=== PATIENT | female | born 1930 | race Caucasian/White ===

== ENCOUNTER 2016-07-03 14:12 | Emergency (ER) | payer MEDICARE ==
[~2016-07-03] VITALS: Ht 152.4 cm; Wt 54.5 kg
[~2016-07-03 14:12] MED LIST: ACIP20TA19 PO; NEBI5 PO
[2016-07-03 14:18] VITALS: BP 148/73; PULSE 70; RESP 16; TEMP 98.3; O2SAT 98
[2016-07-03] MEDS ORDERED: CLON0.1T PO (14:32)
[2016-07-03] MEDS ORDERED: RABE1TAB PO (14:32)
[2016-07-03] MEDS ORDERED: LOSA50TA PO (14:32)
--- NOTE | 2016-07-03 14:32 | PD ---
HPI Chief Complaint: Bite or Sting Time Seen by Provider: 14:28 Travel History International Travel<30 days: No Contact w/Intl Traveler<30days: No Traveled to known affect area: No History of Present Illness HPI 86-year-old female presents the emergency department status post dog bite/dog scratches to the left dorsal wrist and forearm. Patient states it was her own dog was getting excited due to some new in the home. Animal is up-to- date on his shots. Patient is unsure of her last tetanus shot. Pain is described as 3/10. Patient has full range of motion of the left arm and wrist and fingers. Patient has normal sensation in the left distal hand. Patient is allergic to ciprofloxacin and penicillin. 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) Cardiovascular Problems: Yes (HTN) High Cholesterol: No Chemotherapy: No Chest Pain: No Congestive Heart Failure: No COPD: No Cerebrovascular Accident: No Diabetes: No Diverticulitis: Yes Endocrine: No Gastrointestinal Disorders: Yes GERD: Yes Genitourinary: Yes (BLADDER SLING) Hiatal Hernia: No Hypertension: Yes Immune Disorder: No Kidney Stones: No Musculoskeletal: No Neurologic: Yes Psychiatric: No Reproductive: No Respiratory: No Migraines: No Radiation Therapy: No Renal Failure: No Seizures: No Sickle Cell Disease: No Sleep Apnea: No Thyroid Disease: No Ulcer: No ?: Not Menopausal: Yes Past Surgical History Abdominal Surgery: Yes (, CHOLECYSTECTOMY, HYSTERECTOMY) AICD: No Appendectomy: Yes Arteriovenous Shunt: No Cardiac Surgery: No Cholecystectomy: Yes Ear Surgery: No Endocrine Surgery: No Eye Surgery: Yes (CATARACTS) Genitourinary Surgery: Yes (BLADDER) Gynecologic Surgery: Yes (HYSTERECTOMY) Hysterectomy: Yes Insulin Pump: No Joint Replacement: No Oral Surgery: No Pacemaker: No Thoracic Surgery: No Other Surgery: Yes Social History Alcohol Use: No Tobacco Use: No Substance Use: No Allergies-Medications (Allergen,Severity, Reaction): Coded Allergies: Ciprofloxacin (Unverified Allergy, Mild, NAUSEA/VOMITING, 07/03/16) Penicillin (Unverified Allergy, Mild, TONGUE SWELLS, 07/03/16) Reported Meds & Prescriptions Reported Meds & Active Scripts Active Reported Clonidine (Clonidine HCl) 0.1 Mg Tab 0.5 Mg PO Q6HR PRN Losartan (Losartan Potassium) 50 Mg Tab 50 Mg PO DAILY Rabeprazole (Rabeprazole Sodium) 20 Mg Tab 20 Mg PO DAILY Review of Systems General / Constitutional: No: Fever Eyes: No: Visual changes HENT: No: Headaches Cardiovascular: No: Chest Pain or Discomfort Respiratory: No: Shortness of Breath Gastrointestinal: No: Abdominal Pain Genitourinary: No: Dysuria Musculoskeletal: No: Pain Skin: No Rash Neurologic: No: Weakness Psychiatric: No: Depression Endocrine: No: Polydipsia Hematologic/Lymphatic: No: Easy Bruising Physical Exam Narrative GENERAL: Patient appears in mild distress. SKIN: Warm and dry. Normal color. Normal turgor. Patient has a full- thickness laceration to the left dorsal wrist measuring approximately 4 cm. There are 2 small abrasions as well. Patient has 2 small abrasions to the proximal dorsal forearm which do not warrant sutures. HEAD: Atraumatic. Normocephalic. EYES: Pupils equal and round. No scleral icterus. No injection or drainage. ENT: No nasal bleeding or discharge. Mucous membranes pink and moist. Pharynx is clear. NECK: Trachea midline. Supple nontender. CARDIOVASCULAR: Regular rate and rhythm. RESPIRATORY: No accessory muscle use. Clear to auscultation. Breath sounds equal bilaterally. MUSCULOSKELETAL: Extremities without clubbing, cyanosis, or edema. No obvious deformities. Patient has full range of motion and strength in the left arm without significant pain. NEUROLOGICAL: Awake and alert. No obvious cranial nerve deficits. Motor grossly within normal limits. Five out of 5 muscle strength in the arms and legs. Normal speech. PSYCHIATRIC: Appropriate mood and affect; insight and judgment normal. Data Data Last Documented VS Vital Signs Date Time Temp Pulse Resp B/P Pulse Ox O2 Delivery O2 Flow Rate FiO2 07/03/16 14:18 98.3 70 16 148/73 98 Orders Tetanus/Diphtheria Tox Adult (Tetanus/Di (07/03/16 14:45) Lidocai-Epi 1%-1:100,000 Inj (Xylocaine- (07/03/16 14:45) MDM Medical Decision Making Medical Screen Exam Complete: Yes Emergency Medical Condition: Yes Differential Diagnosis Dog bite. Abrasions. Need for sutures. Narrative Course Patient is medically stable at time of exam. Radiographic imaging is not felt warranted based on my history and physical. Patient is given her tetanus booster IM. Left wrist laceration is repaired. See procedure note. Wounds are all cleansed and dressed by nursing staff. Dressing is to remain in place for the next 2 days and kept clean and dry. Patient should follow-up in 2 days for a wound check and dressing change. Sutures should remain in place for 10 days. Patient can return 10 days for suture removal or sooner if symptoms warrant. Procedures Procedure Narrative LACERATION LOCATION: Left dorsal wrist LENGTH: 4 cm NUMBER OF STITCHES/WILLIE: 5 interrupted horizontal mattress REPAIR: The area of the laceration was prepped with Betadine and sterilely draped. The laceration was infiltrated with 3 mL was 1% lidocaine with epi. The wound was copiously irrigated and explored without evidence of foreign body , tendon injury or neurovascular injury. The wound was closed using 5-0 Prolene. This was a single layer repair. A sterile dressing was applied. The patient was advised to keep the dressing clean and dry. Patient tolerated the procedure well. Diagnosis Primary Impression: Dog bite of arm Qualified Code: S41.152A - Dog bite of arm, left, initial encounter Additional Impressions: Laceration of left wrist without complication Qualified Code: S61.512A - Laceration of left wrist without complication, initial encounter Abrasion of forearm, left Qualified Code: S50.812A - Abrasion of forearm, left, initial encounter Patient Instructions: General Instructions Additional Instructions: Radiographic imaging is not felt warranted based on my history and physical. Patient is given her tetanus booster IM. Left wrist laceration is repaired. See procedure note. Wounds are all cleansed and dressed by nursing staff. Dressing is to remain in place for the next 2 days and kept clean and dry. Patient should follow-up in 2 days for a wound check and dressing change. Sutures should remain in place for 10 days. Patient can return 10 days for suture removal or sooner if symptoms warrant. Med/Other Pt SpecificInfo: Wound Care Condition: Stable Haja French Jul 03, 2016 14:32
[2016-07-03] MEDS ORDERED: LIDOCAINE 1%/EPINEPHrine 1:100,000 SOLN 20 ML VIAL INFIL ONE (14:45)
[2016-07-03] MEDS ORDERED: TETANUS/DIPHTHERIA TOXOID ADULT 0.5 ML VIAL IM ONE (14:45)
== END 2016-07-03 15:18 | disposition home or self-care (01) ==
LOC: PHEFT 14:12
DX: S61.512A Laceration without foreign body of left wrist, initial encounter (principal); I10 Essential (primary) hypertension; S50.812A Abrasion of left forearm, initial encounter; Z23 Encounter for immunization; W54.0XXA Bitten by dog, initial encounter; Y93.9 Activity, unspecified; Y92.89 Other specified places as the place of occurrence of the external cause; Y99.9 Unspecified external cause status
CPT/HCPCS: 12002; 90471; 90714

== ENCOUNTER 2016-10-26 07:16 | Emergency (ER) | payer MEDICARE ==
[~2016-10-26] VITALS: Ht 152.4 cm; Wt 53.1 kg
[~2016-10-26 07:16] MED LIST changes: -ACIP20TA19 PO; +CLON0.1T PO; +LOSA50TA PO; -NEBI5 PO; +RABE1TAB PO
[2016-10-26 07:27] VITALS: BP 151/73; PULSE 96; RESP 18; TEMP 97.9; O2SAT 97
[2016-10-26] MEDS ORDERED: AMLO10TA2 PO (07:27)
--- NOTE | 2016-10-26 07:50 | PD ---
HPI Chief Complaint: Skin Problem Time Seen by Provider: 07:37 Travel History International Travel<30 days: No Contact w/Intl Traveler<30days: No Traveled to known affect area: No History of Present Illness HPI 86yo F with PMH of HTN presents to the ED with c/o rash in midforehead for 4 days. States it was painful but not really now. Pt states it had pustules but they bursts. Pt also noted redness and swelling around right eye today. States there was a bug bite around right eyebrow a few days ago. Denies any eye trauma, fever, changes in vision, pain with eye movement, nausea, vomiting, abdominal pain, focal weakness or numbness. The area around the eye was painful and itchy before but not anymore. 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) Cardiovascular Problems: Yes (HTN) High Cholesterol: No Chemotherapy: No Chest Pain: No Congestive Heart Failure: No COPD: No Cerebrovascular Accident: No Diabetes: No Diverticulitis: Yes Endocrine: No Gastrointestinal Disorders: Yes GERD: Yes Genitourinary: Yes (BLADDER SLING) Hiatal Hernia: No Hypertension: Yes Immune Disorder: No Kidney Stones: No Musculoskeletal: No Neurologic: Yes Psychiatric: No Reproductive: No Respiratory: No Migraines: No Radiation Therapy: No Renal Failure: No Seizures: No Sickle Cell Disease: No Sleep Apnea: No Thyroid Disease: No Ulcer: No Influenza Vaccination: No ?: Not Menopausal: Yes Past Surgical History Abdominal Surgery: Yes (, CHOLECYSTECTOMY, HYSTERECTOMY) AICD: No Appendectomy: Yes Arteriovenous Shunt: No Cardiac Surgery: No Cholecystectomy: Yes Ear Surgery: No Endocrine Surgery: No Eye Surgery: Yes (CATARACTS) Genitourinary Surgery: Yes (BLADDER) Gynecologic Surgery: Yes (HYSTERECTOMY) Hysterectomy: Yes Insulin Pump: No Joint Replacement: No Oral Surgery: No Pacemaker: No Thoracic Surgery: No Other Surgery: Yes (MELANOMA EXCISED RIGHT ARM) Social History Alcohol Use: No Tobacco Use: No Substance Use: No Allergies-Medications (Allergen,Severity, Reaction): Coded Allergies: Ciprofloxacin (Unverified Allergy, Mild, NAUSEA/VOMITING, 10/26/16) Penicillin (Unverified Allergy, Mild, TONGUE SWELLS, 10/26/16) Reported Meds & Prescriptions Reported Meds & Active Scripts Active Keflex (Cephalexin) 500 Mg Cap 500 Mg PO Q12H 7 Days Acyclovir 800 Mg Tab 800 Mg PO 5 TIMES A DAY 7 Days Reported Amlodipine (Amlodipine Besylate) 10 Mg Tab 10 Mg PO DAILY Rabeprazole (Rabeprazole Sodium) 20 Mg Tab 20 Mg PO DAILY Review of Systems Except as stated in HPI: all other systems reviewed are Neg Physical Exam Narrative GENERAL: 86yo F not in distress. SKIN: Multiple yellow vesicles mid forehead. There are also some crusting above that and pt states it was pustules. HEAD: Atraumatic. Normocephalic. EYES: Pupils equal and round at 3mm bilaterally. Periorbital erythema and swelling. No dendritic uptake of flurescein in wood's lamp exam bilateral eyes. Visual acuity 20/30 in bilateral eyes. ENT: No nasal bleeding or discharge. Mucous membranes pink and moist. NECK: Trachea midline. No JVD. CARDIOVASCULAR: Regular rate and rhythm. No murmur appreciated. RESPIRATORY: No accessory muscle use. Clear to auscultation. Breath sounds equal bilaterally. GASTROINTESTINAL: Abdomen soft, non-tender, nondistended. MUSCULOSKELETAL: No obvious deformities. No clubbing. No cyanosis. No edema. NEUROLOGICAL: Awake and alert. No obvious cranial nerve deficits. Motor grossly within normal limits. Normal speech. PSYCHIATRIC: Appropriate mood and affect; insight and judgment normal. Data Data Last Documented VS Vital Signs Date Time Temp Pulse Resp B/P Pulse Ox O2 Delivery O2 Flow Rate FiO2 10/26/16 07:27 97.9 96 18 151/73 97 MDM Medical Decision Making Medical Screen Exam Complete: Yes Emergency Medical Condition: Yes Differential Diagnosis Herpes zoster vs. periorbital cellulitis vs. allergic reaction Narrative Course 86yo F with 2 different rash. The rash in midforehead appears to be herpes zoster and there is also a bug bite in right eyebrow that may have caused early periorbital cellulitis or allergic reaction to the bug bite. Pt is nontoxic appearing. Denies any fever, vomiting, eye pain or decreased vision. Pt currently has no pain or itching. Advised pt not to rub eyes. Diagnosis Primary Impression: Herpes zoster Qualified Code: B02.9 - Herpes zoster without complication Additional Impression: Periorbital cellulitis of right eye Referrals: Ariana Fletcher MD as needed Patient Instructions: General Instructions Departure Forms: Tests/Procedures Additional Instructions: Please follow up with an squeegee operator in 3-7 days. Return to the ED if symptoms worsen. Med/Other Pt SpecificInfo: Prescription(s) given Scripts Cephalexin (Keflex)500 Mg [id number] Mg PO Q12H 7 Days Ref 0 Prov:Amanda Hernandez DO 10/26/16 Acyclovir 800 Mg [id number] Mg PO 5 TIMES A DAY 7 Days Ref 0 Prov:Amanda Hernandez DO 10/26/16 Disposition: 01 DISCHARGE HOME Condition: Stable Amanda Hernandez DO Oct 26, 2016 07:50
[2016-10-26] MEDS ORDERED: ACYC800T PO (08:24)
[2016-10-26] MEDS ORDERED: CEPH-460 PO (08:24)
[2016-10-29] MEDS ORDERED: SYSTSOL EACH EYE (09:46)
== END 2016-10-26 08:36 | disposition home or self-care (01) ==
LOC: PHED 07:16
DX: B02.9 Zoster without complications (principal); L03.213 Periorbital cellulitis
CPT/HCPCS: 99284

== ENCOUNTER 2017-01-14 15:03 | Emergency (ER) | payer MEDICARE ==
[~2017-01-14 15:03] MED LIST changes: +AMLO10TA2 PO; -CLON0.1T PO; -LOSA50TA PO; +MULTTAB27; +SYSTSOL EACH EYE
[2017-01-14 15:12] VITALS: BP 138/64; PULSE 68; RESP 20; TEMP 97.8; O2SAT 98
--- NOTE | 2017-01-14 15:25 | PD ---
HPI Chief Complaint: Musculoskeletal Complaint Time Seen by Provider: 15:24 Travel History International Travel<30 days: No Contact w/Intl Traveler<30days: No Traveled to known affect area: No History of Present Illness HPI 86-year-old female patient presents to the ER today, states that she lost balance and fell onto her left shoulder, is having severe left shoulder pains. She denies any head injury, loss of consciousness, or any other injuries. She was ambulatory into the ER with help from her son. 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) Cardiovascular Problems: Yes (HTN) High Cholesterol: No Chemotherapy: No Chest Pain: No Congestive Heart Failure: No COPD: No Cerebrovascular Accident: No Diabetes: No Diverticulitis: Yes Endocrine: No Gastrointestinal Disorders: Yes GERD: Yes Genitourinary: Yes (BLADDER SLING) Hiatal Hernia: No Hypertension: Yes Immune Disorder: No Kidney Stones: No Musculoskeletal: No Neurologic: Yes Psychiatric: No Reproductive: No Respiratory: No Migraines: No Radiation Therapy: No Renal Failure: No Seizures: No Sickle Cell Disease: No Sleep Apnea: No Thyroid Disease: No Ulcer: No Menopausal: Yes Past Surgical History Abdominal Surgery: Yes (, CHOLECYSTECTOMY, HYSTERECTOMY) AICD: No Appendectomy: Yes Arteriovenous Shunt: No Cardiac Surgery: No Cholecystectomy: Yes Ear Surgery: No Endocrine Surgery: No Eye Surgery: Yes (CATARACTS) Genitourinary Surgery: Yes (BLADDER) Gynecologic Surgery: Yes (HYSTERECTOMY) Hysterectomy: Yes Insulin Pump: No Joint Replacement: No Oral Surgery: No Pacemaker: No Thoracic Surgery: No Other Surgery: Yes (MELANOMA EXCISED RIGHT ARM) Social History Alcohol Use: No Tobacco Use: No Substance Use: No Allergies-Medications (Allergen,Severity, Reaction): Coded Allergies: ciprofloxacin (Verified Allergy, Mild, NAUSEA/VOMITING, 01/14/17) penicillin G (Verified Allergy, Mild, TONGUE SWELLS, 01/14/17) Reported Meds & Prescriptions Reported Meds & Active Scripts Active Reported Multi-Day Vitamins (Multiple Vitamin) 1 Tab Tab Amlodipine (Amlodipine Besylate) 10 Mg Tab 10 Mg PO DAILY Rabeprazole (Rabeprazole Sodium) 20 Mg Tab 20 Mg PO DAILY Review of Systems Except as stated in HPI: all other systems reviewed are Neg Physical Exam Narrative GENERAL: Well-developed elderly white female patient currently in moderate distress. Awake and oriented 3. SKIN: Focused skin assessment warm/dry. HEAD: Atraumatic. Normocephalic. EYES: Pupils equal and round. No scleral icterus. No injection or drainage. ENT: No nasal bleeding or discharge. Mucous membranes pink and moist. NECK: Trachea midline. No JVD. CARDIOVASCULAR: Regular rate and rhythm. No murmur appreciated. RESPIRATORY: No accessory muscle use. Clear to auscultation. Breath sounds equal bilaterally. GASTROINTESTINAL: Abdomen soft, non-tender, nondistended. Hepatic and splenic margins not palpable. Pelvis: Stable and nontender to palpation. EXTREMITIES: No clubbing, cyanosis, or edema. No joint tenderness, effusion, or edema noted. Tender palpation of the left proximal humerus, decreased range of motion secondary to pain, neurovascularly intact below lesion. MUSCULOSKELETAL: No obvious deformities. No clubbing. No cyanosis. No edema. NEUROLOGICAL: Awake and alert. No obvious cranial nerve deficits. Motor grossly within normal limits. Normal speech. PSYCHIATRIC: Appropriate mood and affect; insight and judgment normal. Data Data Last Documented VS Vital Signs Date Time Temp Pulse Resp B/P (MAP) Pulse Ox O2 Delivery O2 Flow Rate FiO2 01/14/17 17:40 75 16 135/66 (89) 97 Room Air 01/14/17 15:12 97.8 Orders Orders Humerus (Min 2vws) (01/14/17 15:24) Hydromorphone Pf Inj (Dilaudid Pf Inj) (01/14/17 15:30) Ondansetron Inj (Zofran Inj) (01/14/17 15:30) Splint Or Brace Apply/Monitor (01/14/17 18:01) MDM Medical Decision Making Medical Screen Exam Complete: Yes Emergency Medical Condition: Yes Medical Record Reviewed: Yes Differential Diagnosis Fall, left shoulder injury: Contusions versus dislocation versus fracture Narrative Course X-ray shows very proximal displaced humeral fracture. She is neurovascularly intact. She is placed in a sling. I have made multiple attempts for an hour to contact Dr. Limon of orthopedics who is currently on-call, after 3 repeated attempts, I am unable to contact anybody. At this point, considering patient's age and fracture, I do not suspect that they would immediately operate on this. I will release her with contact for orthopedics. Return for any worsening in pain or new issues as needed. Follow-up with orthopedics. The plan was discussed with her and she states understanding. Diagnosis Primary Impression: Humeral fracture Referrals: Dane Shah Jr., MD Med/Other Pt SpecificInfo: Prescription(s) given Scripts Hydrocodone-Acetaminophen (Lortab) 5-325 Mg Tab 1-2 TAB PO Q6H Y for PAIN, #15 TAB 0 Refills Prov: Trini Lazo MD 01/14/17 Disposition: DISCHARGE HOME Condition: Stable Trini Lazo MD Jan 14, 2017 15:25
[2017-01-14] MEDS ORDERED: ONDANSETRON HCL 4 MG/2 ML VIAL IM ONE (15:30)
[2017-01-14] MEDS ORDERED: HYDROmorphone HCL PF 0.5 MG/0.5 ML SYRINGE IM ONE (15:30)
--- NOTE | 2017-01-14 17:17 | RADRPT ---
EXAM DATE/TIME: 01/14/2017 15:49 [facility] COMPARISON: No previous studies available for comparison. INDICATIONS : Fell on left shoulder today. MEDICAL HISTORY : None. SURGICAL HISTORY : None. ENCOUNTER: Initial ACUITY: 1 day PAIN SCORE: 10/10 LOCATION: Left Humerus FINDINGS: Diffuse osteopenia. There is a displaced fracture through the anatomic neck of the proximal humerus and possible associated displaced fracture of the greater tuberosity. The humeral head remains in al ignment with the glenoid on the oblique view. The shaft of the humerus is intact. No radiopaque for eign bodies. CONCLUSION: Displaced fractures of the humeral head and greater tuberosity. Romain hSarp MD on January 14, 2017 at 17:14 Board Certified Radiologist. This report was verified electronically.
--- NOTE | 2017-01-14 17:17 | RADRPT ---
EXAM DATE/TIME: 01/14/2017 15:49 [facility] COMPARISON: No previous studies available for comparison. INDICATIONS : Fell on left shoulder today. MEDICAL HISTORY : None. SURGICAL HISTORY : None. ENCOUNTER: Initial ACUITY: 1 day PAIN SCORE: 10/10 LOCATION: Left Humerus FINDINGS: Diffuse osteopenia. There is a displaced fracture through the anatomic neck of the proximal humerus and possible associated displaced fracture of the greater tuberosity. The humeral head remains in al ignment with the glenoid on the oblique view. The shaft of the humerus is intact. No radiopaque for eign bodies. CONCLUSION: Displaced fractures of the humeral head and greater tuberosity. Romain Sharp MD on January 14, 2017 at 17:14 Board Certified Radiologist. This report was verified electronically.
[2017-01-14 17:40] VITALS: BP 135/66; PULSE 75; RESP 16; O2SAT 97
[2017-01-14] MEDS ORDERED: HYDR-3533 PO (18:54)
[2017-01-14 19:13] VITALS: BP 134/71; PULSE 107; RESP 16
[2017-01-14] MEDS ORDERED: ACETAMINOPHEN/HYDROcodone 325 MG/5 MG TAB PO ONE (19:15)
== END 2017-01-14 20:22 | disposition home or self-care (01) ==
LOC: PHED 15:03
DX: S42.292A Other displaced fracture of upper end of left humerus, initial encounter for closed fracture (principal); W01.0XXA Fall on same level from slipping, tripping and stumbling without subsequent striking against object, initial encounter
CPT/HCPCS: 73060; 96374; 96375; 99284; J1170; J2405

== ENCOUNTER 2017-01-25 07:23 | Observation (INO) | payer MEDICARE ==
[~2017-01-25] VITALS: Ht 152.4 cm; Wt 56.5 kg
[~2017-01-25 07:23] MED LIST changes: +HYDR-3533 PO; -SYSTSOL EACH EYE
[2017-01-25] MEDS ORDERED: SODIUM CHLORIDE 0.9% IV SCH ×4 (08:15)
[2017-01-25] MEDS ORDERED: METOPROLOL TARTRATE 25 MG TAB PO PRN (08:15)
[2017-01-25] MEDS ORDERED: SODIUM CHLORID 0.9% 500 ML IV PRN (08:15)
[2017-01-25] MEDS ORDERED: INSULIN HUMAN REGULAR 1,000 UNITS/10 ML VIAL SQ PRN (08:15)
[2017-01-25] MEDS ORDERED: LACTATED RINGER'S 1000 ML IV PRN (08:15)
[2017-01-25] MEDS ORDERED: CHLORHEXIDINE GLUCONATE 4% SOLN 120 ML BTL TOPICAL SCH (08:15)
[2017-01-25] MEDS ORDERED: CHLORHEXIDINE GLUCONATE 2 % 1 PACK (2 CLOTHS) TOPICAL PRN (08:15)
[2017-01-25] MEDS ORDERED: EXPAREL PERI-ARTICULAR INJECTION (TOTAL VOL. 60 ML) P-ARTICULR SCH ×2 (08:15)
[2017-01-25] MEDS ORDERED: TRANEXAMIC ACID IV SCH ×4 (08:15)
[2017-01-25] MEDS ORDERED: POVIDONE IODINE 5% (ANTISEPSIS KIT) 4 APPLICATIONS EACH NARE PRN (08:15)
[2017-01-25] MEDS ORDERED: IBUP200C PO (08:23)
[2017-01-25] MEDS ORDERED: CALC1TAB87 PO (08:23)
[2017-01-25] MEDS ORDERED: MAGN400T24 (08:23)
[2017-01-25] MEDS ORDERED: MAGN200T PO (08:23)
[2017-01-25 08:54] LABS: AUTOMATED NEUTROPHIL # 3.8 TH/MM3 (1.8-7.7); BASOPHIL # 0.1 TH/MM3 (0-0.2); BASOPHIL % 1.3 % (0.0-2.0); EOSINOPHIL % 0.7 % (0.0-4.0); HEMATOCRIT 40.4 % (35.0-46.0); HEMO FLAGS DIFF FINAL; LYMPH % 29.1 % (9.0-44.0); LYMPHOCYTE # 1.8 TH/MM3 (1.0-4.8); MEAN CELL VOLUME 88.3 FL (80.0-100.0); MEAN CORPUSCULAR HEMOGLOBIN 29.7 PG (27.0-34.0); MEAN CORPUSCULAR HGB CONC 33.7 % (32.0-36.0); MONO % 9.1 % (0.0-8.0); NEUT % 59.8 % (16.0-70.0); PLATELET COUNT 377 TH/MM3 (150-450); RED BLOOD COUNT 4.57 MIL/MM3 (4.00-5.30); RED CELL DISTRIBUTION WIDTH 13.6 % (11.6-17.2); WHITE BLOOD COUNT 6.3 TH/MM3 (4.0-11.0)
--- NOTE | 2017-01-25 09:24 | EKG ---
Date Performed: 01/25/2017 Time Performed: 08:00:11 PTAGE: 86 years EKG: Sinus rhythm LEFT AXIS DEVIATION LOW QRS VOLTAGE IN PRECORDIAL LEADS POSSIBLE ANTERIOR MYOCARDIAL INFARCTION , MI OBABLY OLD ABNORMAL ECG PREVIOUS TRACING : 11/21/2013 11.38 Compared to previous tracing, PACs are no longer present. DOCTOR: Noel Winters Interpretating Date/Time 01/25/2017 09:22:13
[2017-01-25] MEDS ORDERED: BUPIVACAINE HCL PF 0.5% 30 ML VIAL ONE (09:26)
[2017-01-25] MEDS ORDERED: CLINDAMYCIN INJ 900 MG in SODIUM CHLORIDE 0.9% INJ 100 ML IV SCH (09:45)
[2017-01-25] MEDS ORDERED: CLINDAMYCIN PHOS 900 MG/6 ML VIAL ONE (10:00)
[2017-01-25] MEDS ORDERED: GENTAMICIN SULFATE 80 MG/2 ML VIAL ONE (10:00)
[2017-01-25] MEDS ORDERED: LIDOCAINE HCL 1% PF 5 ML SYRINGE OTHER ONE (12:00)
[2017-01-25] MEDS ORDERED: ROCURONIUM INJ 50 MG/5 ML SYRINGE IV PUSH ONE (12:00)
[2017-01-25] MEDS ORDERED: GLYCOPYRROLATE 1 MG/5 ML SYRINGE IV PUSH ONE (12:00)
[2017-01-25] MEDS ORDERED: PROPOFOL 200 MG/20 ML AMP IV ONE (12:00)
[2017-01-25] MEDS ORDERED: ePHEDrine/NS 25 MG/5 ML SYR IV ONE (12:00)
[2017-01-25] MEDS ORDERED: ONDANSETRON HCL 4 MG/2 ML VIAL IV PUSH ONE (12:00)
[2017-01-25] MEDS ORDERED: NEOSTIGMINE 3 MG/3 ML SYR IV ONE (12:00)
[2017-01-25] MEDS ORDERED: DEXAMETHASONE SOD PHOS 4 MG/ML VIAL IV ONE (12:00)
[2017-01-25] MEDS ORDERED: SODIUM CHLORIDE 0.9% FLUSH 10 ML FLUSH IV FLUSH PRN (12:45)
[2017-01-25] MEDS ORDERED: ACETAMINOPHEN/HYDROcodone 325 MG/5 MG TAB PO PRN ×2 (12:45)
[2017-01-25] MEDS ORDERED: MORPHINE SULFATE 2 MG/ML INJ IV PUSH PRN (12:45)
[2017-01-25] MEDS ORDERED: MAGNESIUM HYDROXIDE SUSP 30 ML CUP PO PRN (12:45)
[2017-01-25] MEDS ORDERED: ONDANSETRON HCL 4 MG/2 ML VIAL IVP PRN (12:45)
[2017-01-25] MEDS ORDERED: Post-op Orders (for Pharmacy) MISC XX ONE (12:51)
[2017-01-25] MEDS ORDERED: DO NOT ADM ANY ANTICOAGULANT DRUGS PRN (12:54)
--- NOTE | 2017-01-25 12:55 | HHI.PR ---
Immediate Post Op Note Procedure Date: Jan 25, 2017 Pre Op Diagnosis: (1) Displaced fracture of proximal end of left humerus Post Op Diagnosis: (1) Displaced fracture of proximal end of left humerus Surgeon: Germán Carlos MD [employer]ent Ac[employer] Administrator(s): SANDRA Swan Procedure: Hemiarthroplasty, left shoulder and biceps tenodesis. Findings: Osteoporosis and comminuted displaced 4 part fracture left humerus. Fraying of long head biceps brachii. Complications: Jayshree Specimen(s) removed: None. Estimated blood loss: 200ml. Anesthesia: General, Regional Block (Interscalene block.), Local (Exparel.) Drains: None IVF Patient to: PACU Patient Condition: Good Implant/Devices: SEE IMPLANT LOG (if applicable) Date/Time of Procedure: SEE SURGICAL CARE RECORD Ian Carlos MD (Charles) Jan 25, 2017 12:55
--- NOTE | 2017-01-25 12:57 | RADRPT ---
EXAM DATE/TIME: 01/25/2017 12:10 [facility] COMPARISON: No previous studies available for comparison. INDICATIONS : Post-op total left shoulder arthroplasty. MEDICAL HISTORY : None. SURGICAL HISTORY : None. ENCOUNTER: Subsequent ACUITY: 1 day PAIN SCORE: Non-responsive. LOCATION: Left upper extremity FINDINGS: There is good position and alignment of the left shoulder prosthesis. CONCLUSION: Good position and alignment on this postoperative study. Naresh Robles MD on January 25, 2017 at 12:55 Board Certified Radiologist. This report was verified electronically.
[2017-01-25] MEDS ORDERED: IBUPROFEN 200 MG TAB PO PRN (13:00)
[2017-01-25] MEDS: LACTATED RINGER'S 1000 ML INJ 1,000 ML IV SCH (13:30)
--- NOTE | 2017-01-25 15:39 | PD.CONS ---
HPI Service [facility] Consult Requested By Dr Carlos Reason for Consult Medical management Primary Care Physician ANNITA Kim Diagnoses: (1) Status post total replacement of left shoulder (2) Displaced fracture of proximal end of left humerus History of Present Illness The patient said very pleasant 86-year-old female with past medical history of hypertension, GERD who came to same day surgery for shoulder surgery by Dr. Cleaning. The patient was seen in PACU. She appears in not acute distress. Says she doesn't have any pain at this time however she has some numbness in her right arm. No fever or chills. No chest pain or shortness of breath. No nausea, vomiting, diarrhea or constipation. Review of Systems Except as stated in HPI: all other systems reviewed are Neg Past Family Social History Allergies: Coded Allergies: ciprofloxacin (Verified Allergy, Mild, NAUSEA/VOMITING, 01/25/17) penicillin G (Verified Allergy, Mild, TONGUE SWELLS, 01/25/17) Past Medical History HTN, GERD Past Surgical History Hysterectomy Tubal with surgery Abdominal surgery for peritonitis Cholecystitis Appendicitis Bladder surgery Right elbow melanoma removal Reported Medications Reported Meds & Active Scripts Active Reported Magnesium 200 Mg Tab 200 Mg PO DAILY Magnesium (Magnesium Oxide) 400 Mg Tablet Ibuprofen 200 Mg Cap 200 Mg PO Q4H PRN Calcium 600 with Vitamin D (Calcium Carbonate-Cholecalciferol) 600-400 mg-Unit Tab 1 Tab PO DAILY Multi-Day Vitamins (Multiple Vitamin) 1 Tab Tab Amlodipine (Amlodipine Besylate) 10 Mg Tab 10 Mg PO DAILY Rabeprazole (Rabeprazole Sodium) 20 Mg Tab 20 Mg PO DAILY Family History Father of lung cancer he was a smoker Mother had lymphoma Social History Denies alcohol use, illicit drug use or tobacco use Physical Exam Vital Signs Vital Signs Date Time Temp Pulse Resp B/P (MAP) Pulse Ox O2 Delivery O2 Flow Rate FiO2 01/25/17 14:00 97.6 88 16 126/58 (80) 96 Nasal Cannula 2 01/25/17 13:45 90 16 120/61 (80) 96 Nasal Cannula 2 01/25/17 13:30 93 16 121/60 (80) 96 Nasal Cannula 2 01/25/17 13:15 95 15 126/68 (87) 95 Nasal Cannula 2 01/25/17 13:00 98 15 128/69 (88) 94 Nasal Cannula 2 01/25/17 12:54 97.5 100 15 130/68 (88) 100 Simple Mask 6 01/25/17 08:15 98.9 84 16 142/77 (98) 98 Physical Exam GENERAL: This is a well-nourished, well-developed patient, in no apparent distress. SKIN: No rashes, ecchymoses or lesions. Cool and dry. HEAD: Atraumatic. Normocephalic. No temporal or scalp tenderness. EYES: Pupils equal round and reactive. Extraocular motions intact. No scleral icterus. No injection or drainage. ENT: Nose without bleeding, purulent drainage or septal hematoma. Throat without erythema, tonsillar hypertrophy or exudate. Uvula midline. Airway patent. NECK: Trachea midline. No JVD or lymphadenopathy. Supple, nontender, no meningeal signs. CARDIOVASCULAR: Regular rate and rhythm without murmurs, gallops, or rubs. RESPIRATORY: Clear to auscultation. Breath sounds equal bilaterally. No wheezes , rales, or rhonchi. GASTROINTESTINAL: Abdomen soft, non-tender, nondistended. No hepato-splenomegaly , or palpable masses. No guarding. MUSCULOSKELETAL: S/P left humerus fracture. Extremities without clubbing, cyanosis, or edema. No joint tenderness, effusion, or edema noted. No calf tenderness. Negative Homans sign bilaterally. NEUROLOGICAL: Awake and alert. Cranial nerves II through XII intact. Motor and sensory grossly within normal limits. Five out of 5 muscle strength in all muscle groups. Normal speech. Laboratory Laboratory Tests Test 01/25/17 08:18 White Blood Count 6.3 Red Blood Count 4.57 Hemoglobin 13.6 Hematocrit 40.4 Mean Corpuscular Volume 88.3 Mean Corpuscular Hemoglobin 29.7 Mean Corpuscular Hemoglobin Concent 33.7 Red Cell Distribution Width 13.6 Platelet Count 377 Mean Platelet Volume 8.2 Neutrophils (%) (Auto) 59.8 Lymphocytes (%) (Auto) 29.1 Monocytes (%) (Auto) 9.1 Eosinophils (%) (Auto) 0.7 Basophils (%) (Auto) 1.3 Neutrophils # (Auto) 3.8 Lymphocytes # (Auto) 1.8 Monocytes # (Auto) 0.6 Eosinophils # (Auto) 0.0 Basophils # (Auto) 0.1 CBC Comment DIFF FINAL Differential Comment Result Diagram: 01/25/17 0818 Imaging Last Impressions Shoulder X-Ray 01/25/17 0000 Signed Impressions: Service Date/Time: Wednesday, January 25, 2017 12:10 - CONCLUSION: Good position and alignment on this postoperative study. Naresh Robles MD Assessment and Plan Assessment and Plan Osteoporosis and comminuted displaced 4 part fracture left humerus. Fraying of long head biceps brachii. S/P Hemiarthroplasty, left shoulder and biceps tenodesis. By Dr Cleaning on 01/25/17 Management per orthopedic surgeon Pain medications per pain scale Bowel Regimen, antiemetics as needed HTN continue home meds. Monitor blood pressure, adjust medications as need GERD continue home medications. DVT prophylaxis per surgeon Thank you for this consultation Discussed Condition With Patient , nurse Roxann Christian MD Jan 25, 2017 15:39
[2017-01-25 18:14] VITALS: BP 142/66; PULSE 105; RESP 16; TEMP 97; O2SAT 97
[2017-01-25] MEDS: CLINDAMYCIN INJ 900 MG in SODIUM CHLORIDE 0.9% INJ 100 ML IV SCH (18:27)
[2017-01-25 20:58] VITALS: BP 121/65; PULSE 92; RESP 16; TEMP 96.5; O2SAT 96
[2017-01-25] MEDS: SODIUM CHLORIDE 0.9% FLUSH 10 ML FLUSH IV FLUSH SCH (21:45)
--- NOTE | 2017-01-25 23:03 | MP ---
cc: Unruly BOWMAN. DATE OF SURGERY: 01/25/2017 PREOPERATIVE DIAGNOSIS: Displaced comminuted four-part fracture surgical neck left humerus. POSTOPERATIVE DIAGNOSIS Displaced comminuted four-part fracture surgical neck left humerus. OPERATION PERFORMED Hemiarthroplasty, left shoulder, with biceps tenodesis. SURGEON Ian Bowman MD SOFTWARE TESTER: SANDRA Hung ANESTHESIA General endotracheal with supplemental interscalene block, regional and local with Exparel. INDICATIONS This 86-year-old woman fell sustaining direct injury to her shoulder. She was found to have a comminuted fracture of the proximal humerus on x-ray and CT scan. Physical findings showed extreme ecchymosis about the shoulder with tenderness about the proximal humerus. X-rays and CT scan are as noted above. OPERATIVE FINDINGS A four-part fracture with significant osteoporosis and poor ability to stabilize the fracture for internal fixation. The glenoid surface was intact. The biceps tendon was quite frayed. The prosthesis used was a Syeda Reunion femoral stem size 12, with a size 48 x 18 mm single radius humeral head. PROCEDURE The patient was brought to the operating room and interscalene block, regional and a general endotracheal anesthetic were administered. The patient was placed in the operating room with the clean-air operating suite. The patient was placed in a beach-chair position with a bolster under the left shoulder. Appropriate monitoring was done during the procedure. The left shoulder was then prepped with alcohol, Hibiclens and Chloraprep and draped in the usual manner with the shoulder draped free. An appropriate time-out procedure was carried out. An anterior incision was made going from the clavicle, following the deltopectoral groove down to slightly distal to the anterior axillary fold. The incision was deepened through the subcutaneous tissues to the deltoid and deltopectoral groove. The deltopectoral groove was then opened bluntly with scissors and the cephalic vein protected during the procedure. This was the anterior aspect of the shoulder and the clavipectoral fascia was exposed. The retractors were placed about the shoulder. The fracture site was identified. An attempt was made to reduce the fracture, however, the fracture would not hold in position and it was felt that, because of the osteoporosis internal fixation would probably not be useful. The rotator interval was then opened. The lesser tuberosity fragment was and a suture placed through this with #2 FiberWire in the insertion site. With this positioned appropriately, the humeral head was delivered from the joint. Debris was removed from the joint. The greater tuberosity fragment which was extremely comminuted posteriorly, was then dressed with a second #2 suture. Reaming was then initiated starting at size 8 and going in 2 millimeter increments up to size 10 and then to size 11 and 12. This was then an appropriate size. Broaching was then started at size 10 and went to 11 and then 12. At size 12, this gave excellent fixation. A trial reduction was then carried out with appropriate retroversion. This was done with the above-noted trial prosthesis size. The shoulder had excellent motion. There was no pistoning. There was no instability. There was a very mild christina posteriorly but this was well within appropriate levels. The trial prosthesis was removed. The biceps tendon was inspected and detached. The this was tagged. A suture was brought through the lateral cortex of the shaft of the humerus. The actual prosthesis, which is a size 12 mm Reunion stem was impacted into place and seated appropriately. When this was seated the humeral head prosthesis was then placed onto this with a clean and dry trunnion and socket. When this was impacted into place stability was excellent. The shoulder was then reduced. The lesser tuberosity and greater tuberosity fragments were brought together. The rotator interval was closed with a towel clip. The posterior suture was brought to anterior and brought the tuberosities together in good position. The distal suture was then brought through this into the greater tuberosity fragment and tied into good position. The lesser tuberosity fragment suture was then brought across as well in a similar manner and tied in place. The rotator interval was then closed with #2 FiberWire [id number] sutures. The biceps tendon was then positioned in an appropriate position. A Gardners suture with the existing #2 suture was used to perform a tenodesis. The remainder of the tendon was removed. The wound was irrigated well with antibiotic solution. The wound was then injected with Exparel throughout almost the entire wound. Wound closure then commenced using 0 Vicryl interrupted aufadp-cx-harpe sutures for the deltopectoral groove, 2-0 Vicryl interrupted simple sutures with buried knots for the subcutaneous tissues and 4-0 Monocryl continuous subcuticular closure for the skin. The wound was dressed with Steri-Strips followed by a silver impregnated dressing. The arm was placed into a sling. She was transferred from the operating room to the recovery room in satisfactory condition having tolerated the procedure well. Counts were correct. Specimens none. Estimated blood loss 200 milliliters. MD JANN Blair/DANIAL /1:03 PM /10:52 PM
[2017-01-26 00:27] VITALS: BP 142/69; PULSE 91; RESP 16; TEMP 96.8; O2SAT 100
[2017-01-26] MEDS: LACTATED RINGER'S 1000 ML INJ 1,000 ML IV SCH ×2 (01:05→07:27)
[2017-01-26] MEDS: CLINDAMYCIN INJ 900 MG in SODIUM CHLORIDE 0.9% INJ 100 ML IV SCH ×2 (01:31→07:26)
[2017-01-26 04:57] VITALS: BP 149/69; PULSE 98; RESP 16; TEMP 96.8; O2SAT 96
[2017-01-26 06:05] LABS: HEMATOCRIT 34.6 % (35.0-46.0); REVIEW FLAG FINAL
--- NOTE | 2017-01-26 06:19 | PD.ORT.PN ---
Subjective Post Op Day #: 1 Subjective Remarks She is doing well, with no complaints other than mild pain. Distance Walked 50 feet with PT. Objective Vitals Vital Signs Date Time Temp Pulse Resp B/P (MAP) Pulse Ox O2 Delivery O2 Flow Rate FiO2 01/26/17 04:57 96.8 98 16 149/69 (95) 96 01/26/17 00:27 96.8 91 16 142/69 (93) 100 01/25/17 20:58 96.5 92 16 121/65 (83) 96 01/25/17 18:14 97.0 105 16 142/66 (91) 97 01/25/17 17:45 97.5 98 16 123/65 (84) 94 Room Air 01/25/17 17:00 97 16 127/68 (87) 94 Room Air 01/25/17 16:00 92 16 130/66 (87) 93 Room Air 01/25/17 15:00 89 16 128/63 (84) 98 Nasal Cannula 2 01/25/17 14:00 97.6 88 16 126/58 (80) 96 Nasal Cannula 2 01/25/17 13:45 90 16 120/61 (80) 96 Nasal Cannula 2 01/25/17 13:30 93 16 121/60 (80) 96 Nasal Cannula 2 01/25/17 13:15 95 15 126/68 (87) 95 Nasal Cannula 2 01/25/17 13:00 98 15 128/69 (88) 94 Nasal Cannula 2 01/25/17 12:54 97.5 100 15 130/68 (88) 100 Simple Mask 6 01/25/17 08:15 98.9 84 16 142/77 (98) 98 I/O 01/25/17 01/25/17 01/25/17 01/26/17 01/26/17 01/26/17 07:00 15:00 23:00 07:00 15:00 23:00 Intake Total 1404.99 ml 766 ml 106 ml Output Total 100 ml Balance 1304.99 ml 766 ml 106 ml Intake Oral 360 ml IV Total 104.99 ml 406 ml 106 ml Other 1300 ml Output Estimated Blood Loss 100 ml # Voids 2 # Bowel Movements 0 Result Diagram: 01/26/17 0415 Imaging Last 72 hours Impressions Shoulder X-Ray 01/25/17 0000 Signed Impressions: Service Date/Time: Wednesday, January 25, 2017 12:10 - CONCLUSION: Good position and alignment on this postoperative study. Naresh Robles MD Objective Remarks She is restimng comfortably, supine in bed. The dressing is dry and intact. The neurovascular status is intact. Assessment & Plan Ortho Post Op Day #: 1 Problem List: (1) Status post total replacement of left shoulder ICD Codes: Z96.612 - Presence of left artificial shoulder joint Plan: Continue postop care and PT. Assessment and Plan Condition: Good. Orthopaedically stable. DVT prophylaxis: TEDs, ASA, sequentials. Discharge plans: Home with [facility] Has appointment. Ian Carlos MD (Charles) Jan 26, 2017 06:18
[2017-01-26] MEDS: SODIUM CHLORIDE 0.9% FLUSH 10 ML FLUSH IV FLUSH SCH (07:25)
[2017-01-26 08:00] VITALS: BP 138/73; PULSE 88; RESP 18; TEMP 97.6; O2SAT 99
[2017-01-26] MEDS ORDERED: PANTOPRAZOLE SOD 40 MG DELAYED RELEASE TAB PO SCH (09:00)
[2017-01-26] MEDS ORDERED: MAGNESIUM 200 MG PO SCH (09:00)
--- NOTE | 2017-01-26 09:29 | HHI.FF ---
Face to Face Verification Diagnosis: (1) Status post total replacement of left shoulder (2) Displaced fracture of proximal end of left humerus Occupational Therapy Left UE Weight Bearing: Non WB Left UE Range of Motion: Pendular Additional Instructions No active abduction or forward flexion until 6 weeks postop. Nursing Dressing Changes: Daily dressing change, Coverderm/Primapore Additional Instructions Dressing changes do not start until postop day 7. Remove steristrips on postop day 14. I have seen patient Hien Lopez on 01/26/17. My clinical findings support the need for the requested home health care services because: Ltd mobility - disease progression Limited ability to care for self High risk of falls I certify that my clinical findings support that this patient is homebound because: Post-op weakness Unsteady gait/balance Unsafe to leave home unassisted Ian Carlos MD (Charles) Jan 26, 2017 09:29
[2017-01-26] MEDS ORDERED: DOCUSATE SODIUM 100 MG CAP PO SCH (21:00)
== END 2017-01-26 11:12 | disposition home or self-care (01) ==
LOC: HSDC 07:23 → HSDI 12:56 → N06A 18:08
PROVIDERS: ADMIT Orthopaedic Surgery; ATTEND Orthopaedic Surgery
DX: S42.242A 4-part fracture of surgical neck of left humerus, initial encounter for closed fracture (principal); I10 Essential (primary) hypertension; M81.0 Age-related osteoporosis without current pathological fracture; R94.31 Abnormal electrocardiogram [ECG] [EKG]; W10.9XXA Fall (on) (from) unspecified stairs and steps, initial encounter; Y92.009 Unspecified place in unspecified non-institutional (private) residence as the place of occurrence of the external cause
CPT/HCPCS: 01630; 23470; 73030; 76000; 85014; 85018; 85025; 93005; 94150; 97110; 97116; 97163; 97166; C1776; C9290; G0378; J1100; J1580; J2405; J2710; J3010; J7120